=== PATIENT | male | born 1995 | race Caucasian/White ===

== ENCOUNTER 2022-11-26 09:42 | Emergency (ER) | payer MEDICARE, MEDICAID ==
[~2022-11-26] VITALS: Ht 175.3 cm; Wt 131.8 kg
[2022-11-26 10:13] VITALS: PULSE 110; RESP 18; TEMP 98.9; O2SAT 96
--- NOTE | 2022-11-26 10:22 | NUR ---
FATHER CONTACT INFORMATION GRETEL BELLO
[2022-11-26] MEDS ORDERED: ziprasidone 20mg capsule PO STA (10:51)
--- NOTE | 2022-11-26 13:30 | NUR ---
REGULAR DIET LUNCH GIVEN TO PATIENT AND TOLERATED WELL. AWAITING TRANSPORTATION HOME.
--- NOTE | 2022-11-26 15:10 | NUR ---
TC FROM FATHER, GRETEL BELLO. FATHER IS SUPPOSED TO BE COMING HERE TO [place] TO [employer] ADMINISTRATIVE ASSISTANT PATIENT. GRETEL INQUIRED IF HIS SON WAS BEING HELD FOR MENTAL HEALTH SERVICES OR DISCHARGED. THIS DISCUSSION WAS DONE EARLIER TODAY WHEN PATIENT ARRIVED HERE AND IT WAS DETERMINED THAT HE WAS NOT A DANGER TO HIMSELF OR OTHERS. GRETEL INFORMED THAT HIS SON (THE PATIENT) WAS ALREADY EVALUATED BY THE DOCTOR AND DISCHARGED, BUT WE ARE KEEPING HIM HERE UNTIL TRANSPORTATION HOME ARRIVES. GRETEL DID NOT GIVE THIS NURSE AN ETA, SO UNSURE WHEN THE PATIENT'S FATHER WILL ARRIVE HERE. ZECHARIAH IS RESTING IN THE RAP ROOM, WAITING FOR HIS FATHER TO ARRIVE FOR TRANSPORTATION HOME TO [place].
== END 2022-11-26 16:28 | disposition home or self-care (01) ==
LOC: ER 09:43
DX: F20.9 Schizophrenia, unspecified (principal)
CPT/HCPCS: 99283; 99284